=== PATIENT | female | born 1985 | race Caucasian/White ===

== ENCOUNTER 2022-07-24 16:58 | Emergency (ER) | payer OTHER, MEDICAID, SELFPAY ==
--- NOTE | ~2022-07-24 | US_ITS ---
EXAMINATION: US soft tissue pelvic DATE: 07/24/2022 18:57 INDICATION: NODULES OF RIGHT UPPER LABIA MAJORA . TECHNIQUE: Grayscale and Doppler ultrasound images of the right pelvic external soft tissues were obt ained. COMPARISON: None. FINDINGS: Region of clinical concern was sonographically interrogated revealing several prominent, hy peremic lymph nodes measuring up to 2.5 cm in maximum dimension and up to 9 mm in maximum thickness. No other masses detected. No cystic lesions. IMPRESSION: Borderline enlarged, hyperemic lymph nodes in the area of clinical concern. Reviewed, dictated and finalized at location [facility].
--- NOTE | ~2022-07-24 | US_ITS ---
EXAMINATION: US pelvic complete DATE: 07/24/2022 18:56 INDICATION: uterine prolapse? nodules R upper labia majora TECHNIQUE: Multiple transabdominal sonographic images of the pelvis were obtained. COMPARISON: None. FINDINGS: Uterus: 9.5 x 6.4 x 4.7 cm. Endometrial complex measures 4 mm. Echogenic focus in the anterior segmen t endometrial tissue of the uterine body measuring 4 mm. Right Ovary: 3.7 x 2.2 x 2.2 cm. Vascular flow is present. Left Ovary: Nonvisualized. There is no free fluid in the pelvis. IMPRESSION: Left ovary not visualized Possible arcuate uterus. 4 mm of subendometrial focus, may represent focal adenomyosis, focal and medial hyperplasia or a subendometrial fibroid. Consider outpatient oncology r eferral. Reviewed, dictated and finalized at [facility]. IMPRESSION: Left ovary not visualized Possible arcuate uterus. 4 mm of subendometrial focus , may represent focal adenomyosis, focal and medial hyperplasia or a subendomet rial fibroid. Consider outpatient oncology referral.
[2022-07-24 17:07] VITALS: BP 112/71; PULSE 63; RESP 16; TEMP 36.4; O2SAT 99
--- NOTE | 2022-07-24 17:34 | ED.FEMALEGU ---
HPI - Female Genitourinary General Chief complaint: Urogenital-Female <Meghan Keating PA-C - Last Filed: 07/24/22 23:57> Stated complaint: vaginal swelling <TAMEKA Gamble Last Filed: 07/24/22 23:57> Time Seen by Provider: 07/24/22 17:19 <TAMEKA Gamble Last Filed: 07/24/22 23:57> Source: patient <TAMEKA Gamble Last Filed: 07/24/22 23:57> Mode of arrival: ambulatory <TAMEKA Gamble Last Filed: 07/24/22 23:57> Limitations: no limitations <TAMEKA Gamble Last Filed: 07/24/22 23:57> History of Present Illness HPI Narrative: Patient is a 37-year-old female who presents to the ED with report of vaginal swelling and discomfort. Patient reports that she noticed swelling and discomfort and the sensation of something coming out of her vagina for the last 1 week. She denies history of Bartholin cyst. She made an appointment with her [employer], Dr. Cronin for next Friday, but reported having increased discomfort today, worse with sitting, which prompted her presentation. She does also report having increased vaginal discharge, and lumps along her right upper vaginal region. She denies any abdominal pain, fevers, nausea, vomiting, abnormal vaginal bleeding, dysuria, hematuria, concern for STDs. <TAMEKA Gamble Last Filed: 07/24/22 23:57> Related Data Allergies/Adverse reactions: Allergies Allergy/AdvReac Type Severity Reaction Status Date / Time No Known Allergies Allergy Unknown Unverified 10/18/08 19:02 <TAMEKA Gamble Last Filed: 07/24/22 23:57> Review of Systems Review of Systems: CONSTITUTIONAL: Denies fever, chills, or sweats. CARDIOVASCULAR: Denies chest pain. RESPIRATORY: Denies dyspnea. GASTROINTESTINAL: Denies abdominal pain, nausea, vomiting, or diarrhea. GENITOURINARY: See HPI. SKIN: See HPI. MUSCULOSKELETAL: Denies back pain, joint pain, or myalgia. <Meghan Keating PA-C - Last Filed: 07/24/22 23:57> All systems reviewed & are unremarkable except as noted in HPI and below <Meghan Keating PA-C - Last Filed: 07/24/22 23:57> PMFSH Past Medical History Medical History: Medical History (Updated 07/25/22 @ 00:00 by Fiordaliza Lockett) No pertinent past medical history <Meghan Keating PA-C - Last Filed: 07/24/22 23:57> Surgical History Surgical History: Surgical History (Updated 07/24/22 @ 23:56 by Meghan Keating PA-C) H/O section <Meghan Keating PA-C - Last Filed: 07/24/22 23:57> Social History Social History: Social History Smoking status: Never smoker <Meghan Keating PA-C - Last Filed: 07/24/22 23:57> Exam Narrative: GENERAL: Well appearing, well-nourished, non-toxic, in no acute distress. HEAD: Normocephalic, atraumatic. NECK: Supple. No adenopathy, no masses. RESPIRATORY: Airway patent, respirations nonlabored. Clear to auscultation bilaterally, no rales, rhonchi, wheezing. CARDIOVASCULAR: Regular rate and rhythm without murmurs, rubs, or gallops. Radial pulses 2+ and equal bilaterally. ABDOMINAL: Soft, nontender, nondistended, no hepatosplenomegaly. Normoactive BS. PELVIC: Normal external appearing vulva. External vaginal exam appears to show uterine prolapse with visualization of cervix and cervical os just through vaginal introitus, Stage 1-2 prolapse. No abrasions, erythema, bleeding, abnormal skin changes noted to cervix. Cervix able to push slightly back into vaginal vault, but discomfort reported with this. Mild amount of vaginal discharge present, appears physiologic. Small subcutaneous nontender, mobile nodules palpated to right upper vulva, labia majora. MUSCULOSKELETAL: Moves all extremities. Strength/ROM intact without gross deformities. SKIN: Warm, dry, normal color. No rashes. NEURO: A&O X3. Speech clear. Crani
[2022-07-24 17:48] LABS: Appearance Urine Turbid (Clear); Bacteria Urine 4+ /hpf; Bilirubin Urine Negative (Negative); Blood Urine Negative (Negative); Color Urine Yellow (Yellow); Glucose Urine UA Negative (Negative); Ketones Urine Negative (Negative); Leukocyte Esterase Ur 1+ LEU/UL (Negative); Nitrate Urine Positive (Negative); Non Pathogenic Casts 0-2; Protein Urine Trace mg/dL (Negative); RBC Urine 0-2 /hpf (0-2); Specific Grav Ur 1.019 (1.001-1.035); Squamous Epithelial Cell Urine Occasional /hpf (Few); pH Urine 8.5 (5.0-9.0)
[2022-07-24 17:56] LABS: Add Urine Microscopic? YES
--- NOTE | 2022-07-24 18:04 | PC.NURSE ---
ultrasound was contacted at 17:55 and told order was being placed.
== END 2022-07-24 21:19 | disposition home or self-care (01) ==
PROVIDERS: Emergency Provider Physician Assistant
DX: N81.4 Uterovaginal prolapse, unspecified (principal); N39.0 Urinary tract infection, site not specified; R93.89 Abnormal findings on diagnostic imaging of other specified body structures
CPT/HCPCS: 76856; 76857; 81001; 87077; 87086; 87186; 99284